=== PATIENT | female | born 1965 | race American Indian/Alaskan Native ===

== ENCOUNTER 2020-08-27 14:57 | Emergency (ER) | payer MEDICARE ==
[2020-08-27 15:05] VITALS: BP 121/80
--- NOTE | 2020-08-27 18:09 | Emergency Department Report ---
ED Back Pain/Injury HPI - General Chief Complaint: Back Pain/Injury Stated Complaint: BACK PAIN Time Seen by Provider: 08/27/20 18:05 Source: patient Limitations: No Limitations - History of Present Illness Initial Comments: 54-year-old female presents to the emergency room for lower back pain. Patient reports she has a history of chronic back pain and has a history of surgery with Ortho hardware. Patient states that she has been moving furniture up and down the steps and thinks that she has dislodged her hardware in her back. Patient states that the pain had gotten worse today. Patient reports that she had a fall down 4 steps 4 days ago. Patient states that this morning she started having difficulty walking. Patient denies any urinary or bowel incontinence. MD Complaint: back pain Similar Symptoms Previously: Yes Radiation: left leg Quality: burning, sharp Consistency: constant Improves With: supine Worsens With: movement, sitting upright Context: while lifting, bending Associated Symptoms: denies other symptoms. denies: difficulty urinating - Related Data Allergies Allergy/AdvReac Type Severity Reaction Status Date / Time metoprolol AdvReac Unknown Verified 08/27/20 15:02 ED Review of Systems ROS: Stated complaint: BACK PAIN Other details as noted in HPI Comment: All other systems reviewed and negative ED Past Medical Hx - Past Medical History Previous Medical History?: Yes Hx Heart Attack/AMI: Yes Hx Congestive Heart Failure: Yes Hx COPD: Yes Additional medical history: chronic back pain - Surgical History Past Surgical History?: Yes Additional Surgical History: Pacemaker/AICD. Cardiac stents. ortho back surgery ED Physical Exam - General Limitations: No Limitations General appearance: alert - Head Head exam: Present: atraumatic - Eye Eye exam: Present: normal appearance - ENT ENT exam: Present: mucous membranes moist - Neurological Exam Neurological exam: Present: alert, oriented X3 - Psychiatric Psychiatric exam: Present: normal affect, normal mood - Skin Skin exam: Present: warm, dry, intact, normal color. Absent: rash ED Course Vital Signs 08/27/20 15:03 Temperature 98.2 F Pulse Rate 67 Respiratory 20 Rate Blood Pressure 121/80 O2 Sat by Pulse 98 Oximetry ED Medical Decision Making - Medical Decision Making 54-year-old female presents to the emergency room for lower back pain. Patient reports she has a history of chronic back pain and has a history of surgery with Ortho hardware. Patient states that she has been moving furniture up and down the steps and thinks that she has dislodged her hardware in her back. Patient states that the pain had gotten worse today. Patient reports that she had a fall down 4 steps 4 days ago. Patient states that this morning she started having difficulty walking. Patient denies any urinary or bowel incontinence. Discussed with patient we are able to do a back x-ray and will have to refer her to an orthopedic for any further testing. Patient refused to have a back x-ray and states that she will just go to her orthopedic provider. Patient left before this provider was able to examine. Critical care attestation.: If time is entered above; I have spent that time in minutes in the direct care of this critically ill patient, excluding procedure time. ED Disposition Clinical Impression: Chronic back pain greater than 3 months duration Disposition: Z-07 [facility] Is pt being admited?: No Does the pt Need Aspirin: No Condition: Stable Referrals: GREGORY RAMIREZ JR, MD [Primary Care Provider] - 3-5 Days
== END 2020-08-27 18:34 | disposition left against medical advice (07) ==
LOC: ED 14:57
DX: M54.5 Low back pain (principal); G89.29 Other chronic pain; I50.9 Heart failure, unspecified; I25.2 Old myocardial infarction; J44.9 Chronic obstructive pulmonary disease, unspecified; Z98.890 Other specified postprocedural states; Z88.8 Allergy status to other drugs, medicaments and biological substances
CPT/HCPCS: 99281

== ENCOUNTER 2022-06-05 12:40 | Emergency (ER) | payer MEDICARE ==
[2022-06-05] MEDS ORDERED: ALBUTEROL 2.5 MG/3 ML NEBU IH ONE (13:14)
[2022-06-05] MEDS ORDERED: FUROSEMIDE 40 MG/4 ML INJ IV ONE (13:14)
--- NOTE | 2022-06-05 13:19 | Emergency Department Report ---
ED Shortness of Breath HPI - General Stated Complaint: CHEST PAIN Time Seen by Provider: 06/05/22 12:51 - History of Present Illness Initial Comments: Patient is a 56-year-old female with history of CHF and COPD presenting to ED with complaint of worsening dyspnea. States 5 days ago she noticed significant swelling in both of her legs from her ankles up to her knees. States he took her Lasix 40 mg 3 times daily resulting and decreased swelling however noted that her shortness of breath was getting worse. States she called her scenic designer who told her that she may have a DVT and told her to seek evaluation in the emergency department. - Related Data Previous Rx's Medication Instructions Recorded Last Taken Type Albuterol Mdi (or & Nicu Only) 2 puff IH QID PRN #8.5 gram 06/05/22 Unknown Rx [ProAir HFA Inhaler] Benzonatate [Tessalon Perles] 100 mg PO Q8HR #15 cap 06/05/22 Unknown Rx predniSONE [Deltasone] 40 mg PO QDAY #10 tab 06/05/22 Unknown Rx Allergies Allergy/AdvReac Type Severity Reaction Status Date / Time metoprolol AdvReac Unknown Verified 08/27/20 15:02 ED Review of Systems ROS: Stated complaint: CHEST PAIN Other details as noted in HPI Constitutional: denies: chills, fever Respiratory: shortness of breath, SOB with exertion. denies: cough, wheezing Cardiovascular: dyspnea on exertion. denies: chest pain, palpitations Gastrointestinal: denies: abdominal pain, nausea, vomiting Musculoskeletal: denies: back pain, joint swelling Skin: denies: rash, lesions Neurological: denies: headache, weakness Psychiatric: denies: anxiety, depression ED Past Medical Hx - Past Medical History Hx Heart Attack/AMI: Yes Hx Congestive Heart Failure: Yes Hx COPD: Yes Additional medical history: chronic back pain - Surgical History Additional Surgical History: Pacemaker/AICD. Cardiac stents. ortho back surgery - Medications Home Medications: Home Medications Medication Instructions Recorded Confirmed Last Taken Type Albuterol Mdi (or & Nicu Only) 2 puff IH QID PRN #8.5 gram 06/05/22 Unknown Rx [ProAir HFA Inhaler] Benzonatate [Tessalon Perles] 100 mg PO Q8HR #15 cap 06/05/22 Unknown Rx predniSONE [Deltasone] 40 mg PO QDAY #10 tab 06/05/22 Unknown Rx ED Physical Exam - General General appearance: alert, in no apparent distress - Head Head exam: Present: atraumatic, normocephalic - Neck Neck exam: Present: normal inspection. Absent: tenderness - Respiratory Respiratory exam: Present: wheezes, rhonchi - Cardiovascular Cardiovascular Exam: Present: regular rate, normal rhythm, normal heart sounds - GI/Abdominal GI/Abdominal exam: Present: soft. Absent: distended, tenderness - Extremities Exam Extremities exam: Absent: pedal edema, joint swelling, calf tenderness - Neurological Exam Neurological exam: Present: alert, oriented X3 - Psychiatric Psychiatric exam: Present: normal affect, normal mood - Skin Skin exam: Present: warm, dry, intact, normal color ED Course Vital Signs 06/05/22 06/05/22 06/05/22 13:11 13:15 13:17 Pulse Rate 68 Pulse Rate [ Bilateral Throughout] Respiratory 14 Rate Respiratory Rate [Bilateral Throughout] Blood Pressure 105/79 Blood Pressure 105/79 [Left] O2 Sat by Pulse 96 97 98 Oximetry 06/05/22 06/05/22 06/05/22 13:31 13:45 14:01 Pulse Rate 68 63 71 Pulse Rate [ Bilateral Throughout] Respiratory 10 L 12 17 Rate Respiratory Rate [Bilateral Throughout] Blood Pressure 105/79 101/72 108/75 Blood Pressure [Left] O2 Sat by Pulse 97 97 95 Oximetry 06/05/22 06/05/22 06/05/22 14:15 14:31 14:35 Pulse Rate 63 64 Pulse Rate [ 69 Bilateral Throughout] Respiratory 16 14 Rate Respiratory 18 Rate [Bilateral Throughout] Blood Pressure 101/72 113/79 Blood Pressure [Left] O2 Sat by Pulse 96 97 Oximetry 06/05/22 06/05/22 06/05/22 14:44 14:45 14:47 Pulse Rate 60 68 64 Pulse Rate [ Bilateral Throughout] Respiratory 11 L 11 L Rate Respiratory Rate [Bilateral Throughout] Blood Pressure 108/75 Blood Pressure 111/75 [Left] O2 Sat by Pulse 96 97 Oximetry 06/05/22 16:08 Pulse Rate 62 Pulse Rate [ Bilateral Throughout] Respiratory 15 Rate Respiratory Rate [Bilateral Throughout] Blood Pressure Blood Pressure 117/72 [Left] O2 Sat by Pulse 97 Oximetry ED Medical Decision Making - Lab Data Result diagrams: 06/05/22 13:46 06/05/22 13:46 - Radiology Data Radiology results: report reviewed Enlarged heart without any acute process. - Medical Decision Making Labs grossly unremarkable. Patient given albuterol neb along with IV Solu- Medrol. She was also given 40 mg of IV Lasix. Chest x-ray shows cardiomegaly without edema or infiltrate. Suspect likely mild COPD exacerbation. Patient states she is out of her albuterol inhaler and requests refill. Will discharge along with 5-day course of prednisone. Critical care attestation.: If time is entered above; I have spent that time in minutes in the direct care of this critically ill patient, excluding procedure time. ED Disposition Clinical Impression: COPD exacerbation Disposition: 01 HOME / SELF CARE / HOMELESS Is pt being admited?: No Condition: Stable Instructions: Chronic Obstructive Pulmonary Disease (ED), Chronic Obstructive Pulmonary Disease, Cough, Adult, [id number], How to Use a Metered Dose Inhaler
--- NOTE | 2022-06-05 13:40 | XRay Report ---
XR chest 1V ap INDICATION / CLINICAL INFORMATION: Dyspnea. COMPARISON: None available. FINDINGS: SUPPORT DEVICES: Left-sided AICD noted. HEART /PULMONARY VASCULATURE: Heart is enlarged. There is no significant pulmonary vasculature conges tion. LUNGS / PLEURA: Lungs are hyperexpanded but appear clear of consolidation. No sizable pleural effusio n. No pneumothorax. ADDITIONAL FINDINGS: No significant additional findings. IMPRESSION: Cardiac enlargement. No evidence of overt failure or other acute chest process. Signer Name: Bill Ureña MD Signed: 06/05/2022 1:34 PM Workstation Name: [id number]
[2022-06-05 14:20] LABS: Basophils % (Auto) 0.7 % (0.0-1.8); Eosinophils # (Auto) 0.2 K/mm3 (0.0-0.4); Eosinophils % (Auto) 3.7 % (0.0-4.3); Hematocrit 47.9 % (30.3-42.9); Hemoglobin 16.4 gm/dl (10.1-14.3); Lymphocytes # (Auto) 1.6 K/mm3 (1.2-5.4); Lymphocytes % (Auto) 32.2 % (13.4-35.0); Mean Corpuscular HGB Conc 34 % (30-34); Mean Corpuscular Volume 93 fl (79-97); Monocytes # (Auto) 0.4 K/mm3 (0.0-0.8); Monocytes % (Auto) 7.2 % (0.0-7.3); Platelet Count 176 K/mm3 (140-440); Red Blood Count 5.16 M/mm3 (3.65-5.03); Red Cell Distribution Width 14.1 % (13.2-15.2)
[2022-06-05 15:31] LABS: Alanine Aminotransferase 11 units/L (7-56); Albumin 4.6 g/dL (3.9-5); Blood Urea Nitrogen 18 mg/dL (7-17); Calcium 9.6 mg/dL (8.4-10.2); Hemolysis Index 18
[2022-06-05 16:10] VITALS: BP 117/72
[2022-06-05 16:36] LABS: BUN/Creatinine Ratio 36
[2022-06-05] MEDS ORDERED: methylPREDNISolone Sod Succinate 125 MG/2 ML INJ IV ONE (18:06)
--- NOTE | 2022-06-07 09:12 | Electrocardiograph Report ---
[facility] Test Date: 2022-06-05 Test Time: 13:07:59 Pat Name: PHYLICIA OLVERA Department: Room: Gender: F It Sales Consultant: RAFA : 1965 Requested By: RACIEL HAWKINS Order Number: [id number] Reading MD: Ian Reyes Measurements Intervals [place] Rate: 63 P: 26 MI: 155 QRS: -75 QRSD: 151 T: 91 QT: 475 QTc: 488 Interpretive Statements Sinus rhythm Right bundle branch block Anterior infarct, age indeterminate No previous ECG available for comparison Electronically Signed On 06-07-2022 9:12:03 EDT by Ian Reyes
== END 2022-06-05 19:24 | disposition home or self-care (01) ==
LOC: ED 12:40
DX: J44.1 Chronic obstructive pulmonary disease with (acute) exacerbation (principal); Z86.79 Personal history of other diseases of the circulatory system
CPT/HCPCS: 36415; 71045; 80053; 84484; 85025; 85379; 93005; 94640; 96374; 96375; 99284; J1940; J2930; 94644